=== PATIENT | male | born 1990 | race Caucasian/White ===

== ENCOUNTER 2016-12-20 18:21 | Emergency (ER) | payer SELFPAY ==
[2016-12-20] MEDS ORDERED: diPHENhydraMINE IV* 50 MG/ML 1 ml VIAL (BENADRYL) ONE (18:25)
[2016-12-20] MEDS ORDERED: LORazepam INJ* 2 MG/ML 1 ML VIAL ONE (18:25)
[2016-12-20] MEDS ORDERED: Haloperidol INJ IV/IM* 5 MG/ML AMP ONE (18:25)
[2016-12-20] MEDS ORDERED: NS 0.9% 1000 ML* 1,000 ML IV ONE (18:26)
[2016-12-20] MEDS ORDERED: LORazepam INJ* 2 MG/ML 1 ML VIAL IM ONE (18:28)
[2016-12-20] MEDS ORDERED: Haloperidol INJ IV/IM* 5 MG/ML AMP IM ONE (18:29)
[2016-12-20] MEDS ORDERED: diPHENhydraMINE IV* 50 MG/ML 1 ml VIAL (BENADRYL) IM ONE (18:29)
--- NOTE | 2016-12-20 19:08 | ED ---
Jonathon Young Auryana, scribed for Matt Helm MD on 12/20/16 at 1902 . Substance Abuse/Use - HPI Summary HPI Summary: 17 year old male BIBA at 2209 status. Patient was at [employer] festival and was running around naked, agitated and disturbing to the public, Police reported - he took "a lot of LSD". Patient is a level 5 caveat due to SA. At this time he has no ID and he reports that he is "God". - History Of Current Complaint Chief Complaint: EDSubstanceAbuse Stated Complaint: 2208 Time Seen by Provider: 12/20/16 18:25 Hx Obtained From: EMS Hx From Patient Unobtainable Due To: Other - Patient is a level 5 caveat due to SA. Ingestion History: Type/Name Of Drug - LSD - possibly, Amount Ingested - "a lot " Timing Of Abuse: Binge Use Severity Initially: Moderate Severity Currently: Moderate Character: Other - agitated and happy PMH/Surg Hx/FS Hx/Imm Hx Previously Healthy: No - Patient is a level 5 caveat due to SA. Infectious Disease History: Denies: Traveled Outside the [place] in Last 30 Days Review of Systems - ROS Summary Review of Systems Summary: Patient is a level 5 caveat due to SA. Positive: Other - running around naked; LSD use; happy but agitated All Other Systems Reviewed And Are Negative: No Physical Exam - Summary Physical Exam Summary: VITAL SIGNS: Reviewed. GENERAL: Patient is a well-developed and nourished male who is lying comfortable in the stretcher. Patient is not in any acute respiratory distress. HEAD AND FACE: No signs of trauma. No ecchymosis, hematomas or skull depressions. No sinus tenderness. EYES: PERRLA, EOMI x 2, No injected conjunctiva, no nystagmus. EARS: Hearing grossly intact. Ear canals and tympanic membranes are within normal limits. MOUTH: Oropharynx within normal limits. NECK: Supple, trachea is midline, no adenopathy, no JVD, no carotid bruit, no c- spine tenderness, neck with full ROM. CHEST: Symmetric, no tenderness at palpation LUNGS: Clear to auscultation bilaterally. No wheezing or crackles. CVS: Regular rate and rhythm, S1 and S2 present, no murmurs or gallops appreciated. ABDOMEN: Soft, non-tender. No signs of distention. No rebound no guarding, and no masses palpated. Bowel sounds are normal. EXTREMITIES: FROM in all major joints, no edema, no cyanosis or clubbing. NEURO: NOT Alert and oriented. Speech is not normal and does not follows commands. Patient is happy and agitated. SKIN: Dry and warm. Triage Information Reviewed: Yes Vital Signs On Initial Exam: Initial Vitals Resp 22 12/20/16 18:30 Vital Signs Reviewed: Yes Diagnostics - Vital Signs Vital Signs Resp 12/20/16 18:30 22 - Laboratory Lab Statement: Any lab studies that have been ordered have been reviewed, and results considered in the medical decision making process. Course/Dx - Course Assessment/Plan: Patient is unable to give any history. The patient is agitated , screaming, and is not making any sense possibly due to his multi-substance drug. Therefore we were forced to give him B52 since patient can be harm to himself or others. The patient will be a sign out to Dr. Fong for further work up and management. We sent blood work and will be awaiting results and further management. Patient will be a sign out with pending further work up and management at shift change. - Diagnoses Provider Diagnoses: Psychosis, Agitated Discharge - Discharge Plan Condition: Stable Disposition: OTHER Discharge Disposition Comment: disposition pending at shift change 19:00 The documentation as recorded by the Jonathon gloria Auryana accurately reflects the service I personally performed and the decisions made by me, Matt Helm MD.
[2016-12-20 20:29] LABS: Hematocrit 43 % (42-52); Hemoglobin 14.7 g/dl (14.0-18.0); Mean Corpuscular HGB Conc 34 g/dl (31-36); Mean Corpuscular Hemoglobin 31 pg (27-31); Mean Corpuscular Volume 92 fL (80-94); Mean Platelet Volume 8 um3 (7.4-10.4); Red Blood Count 4.68 10^6/ul (4.0-5.4); Red Cell Distribution Width 13 % (10.5-15); White Blood Count 17.8 10^3/ul (3.5-10.8)
[2016-12-20 20:36] LABS: Comments Flag Yes
[2016-12-20 20:37] LABS: Add Diff/Slide Review? Slide Review Added
[2016-12-20 20:44] LABS: ALT 9 U/L (7-52); AST 29 U/L (13-39); Albumin 4.6 g/dL (3.2-5.2); Alkaline Phosphatase 45 U/L (34-104); Anion Gap 8 mmol/L (2-11); BUN/Creatinine Ratio 16.9 (8-20); Blood Urea Nitrogen 13 mg/dL (6-24); CO2 Carbon Dioxide 23 mmol/L (22-32); Calcium 9.8 mg/dL (8.6-10.3); Chloride 105 mmol/L (101-111); EGFR African American 155.9 (>60); EGFR Non-African American 121.2 (>60); Globulin 2.8 g/dL (2-4); Glucose 85 mg/dL (70-100); Potassium 4.2 mmol/L (3.5-5.0); Sodium 136 mmol/L (133-145); Total Protein 7.4 g/dL (6.4-8.9)
[2016-12-20 21:03] LABS: Acetaminophen < 15 mcg/mL; Alcohol < 10 mg/dL (<10); Salicylate < 2.50 mg/dL (<30)
[2016-12-20 21:14] LABS: TSH (Thyroid Stimulating Horm) 0.97 mcIU/mL (0.34-5.60)
[2016-12-20 22:35] VITALS: BP 117/71
== END 2016-12-20 22:33 ==
LOC: EDBD → ED 18:21
DX: F29 Unspecified psychosis not due to a substance or known physiological condition (principal); R45.1 Restlessness and agitation
CPT/HCPCS: 36415; 80053; 80320; 80329; 84443; 85025; 96360; 96372; 99285; G0480; J1200; J1630; J2060